=== PATIENT | female | born 1965 ===

== ENCOUNTER 2018-06-16 05:24 | Emergency (ER) | payer SELFPAY ==
[2018-06-16 05:24] VITALS: BMI 31.6
[2018-06-16 05:40] VITALS: TEMP 97.9
--- NOTE | 2018-06-16 05:57 | ED PDOC ---
Arrival/HPI - General Chief Complaint: ENT Problem Time Seen by Provider: 06/16/18 05:42 Historian: Patient - History of Present Illness Narrative History of Present Illness (Text): 06/16/18 05:54 52 year old female, with no significant past medical history, presents to the emergency department with right ear pain. Patient informs pain occurs when she eats. Patient informs pain is not localized to the ear, but travels to her whole right face. Patient informs she has pain in her jaw and teeth as well. Patient denies any fevers, chills, headache, dizziness, chest pain, shortness of breath, cough, abdominal pain, nausea, vomiting, diarrhea, back pain, neck pain, or any other complaint. Time/Duration: Prior to Arrival Symptom Onset: Gradual Symptom Course: Unchanged Quality: Aching Activities at Onset: Light Past Medical History - Provider Review Nursing Documentation Reviewed: Yes - Infectious Disease Hx of Infectious Diseases: None - Reproductive Currently : No - Cardiac Hx Cardiac Disorders: No - Pulmonary Hx Asthma: Yes - Neurological Hx Neurological Disorder: No - HEENT Hx HEENT Disorder: No - Renal Hx Renal Disorder: No - Endocrine/Metabolic Hx Endocrine Disorders: No - Hematological/Oncological Hx Blood Disorders: No - Integumentary Hx Dermatological Disorder: No - Musculoskeletal/Rheumatological Hx Musculoskeletal Disorders: No - Gastrointestinal Hx Gastrointestinal Disorders: No - Genitourinary/Gynecological Hx Genitourinary Disorders: No - Psychiatric Hx Psychophysiologic Disorder: No Hx Substance Use: No - Surgical History Other/Comment: breast reduction and tummy tuck - Anesthesia Hx Anesthesia: Yes Hx Anesthesia Reactions: Yes Hx Malignant Hyperthermia: No Family/Social History - Physician Review Nursing Documentation Reviewed: Yes Family/Social History: No Known Family HX Smoking Status: Never Smoked Hx Alcohol Use: No Hx Substance Use: No Allergies/Home Meds Allergies/Adverse Reactions: Allergies No Known Allergies Allergy (Verified 06/16/18 05:41) Review of Systems - Physician Review All systems were reviewed & negative as marked: Yes - Review of Systems Constitutional: absent: Fevers, Night Sweats ENT: TMJ Pain Respiratory: absent: SOB, Cough Cardiovascular: absent: Chest Pain Gastrointestinal: absent: Abdominal Pain, Diarrhea, Nausea, Vomiting Musculoskeletal: absent: Back Pain, Neck Pain Neurological: absent: Headache, Dizziness Physical Exam Vital Signs Reviewed: Yes Vital Signs Temp Pulse Resp BP Pulse Ox 06/16/18 05:37 97.9 F 78 16 124/86 98 Temperature: Afebrile Blood Pressure: Normal Pulse: Regular Respiratory Rate: Normal Appearance: Positive for: Well-Appearing, Non-Toxic, Comfortable Pain Distress: None Mental Status: Positive for: Alert and Oriented X 3 - Systems Exam Head: Present: Atraumatic, Normocephalic Pupils: Present: PERRL Extroacular Muscles: Present: EOMI Conjunctiva: Present: Normal Mouth: Present: Moist Mucous Membranes Neck: Present: Normal Range of Motion Respiratory/Chest: Present: Clear to Auscultation, Good Air Exchange. No: Respiratory Distress, Accessory Muscle Use Cardiovascular: Present: Regular Rate and Rhythm, Normal S1, S2. No: Murmurs Abdomen: No: Tenderness, Distention, Peritoneal Signs Back: Present: Normal Inspection Upper Extremity: Present: Normal Inspection. No: Cyanosis, Edema Lower Extremity: Present: Normal Inspection. No: Edema Neurological: Present: GCS=15, CN II-XII Intact, Speech Normal Skin: Present: Warm, Dry, Normal Color. No: Rashes Psychiatric: Present: Alert, Oriented x 3, Normal Insight, Normal Concentration Medical Decision Making ED Course and Treatment: 06/16/18 05:57 Impression: 52 year old female presents with right ear pain. Plan: -- CT Mastoids -- Reassess and disposition Prior Visits: Notes and results from previous visits were reviewed. endorsed to wing dillard ct results and dispo - Scribe Statement The provider has reviewed the documentation as recorded by the Katibmaddy Gomez Provider Scribe Attestation: All medical record entries made by the Scribmaddy were at my direction and personally dictated by me. I have reviewed the chart and agree that the record accurately reflects my personal performance of the history, physical exam, medical decision making, and the department course for this patient. I have also personally directed, reviewed, and agree with the discharge instructions and disposition. Disposition/Present on Arrival - Present on Arrival Any Indicators Present on Arrival: No History of DVT/PE: No History of Uncontrolled Diabetes: No Urinary Catheter: No History of Decub. Ulcer: No History Surgical Site Infection Following: None - Disposition Have Diagnosis and Disposition been Completed?: Yes Diagnosis: Acute otitis media Disposition: HOME/ ROUTINE Disposition Time: 07:00 Condition: STABLE Discharge Instructions (ExitCare): Ear Infections (Otitis Media) (DC) Print Language: ENGLISH Additional Instructions: All medical record entries made by the Scribe were at my direction and personally dictated by me. I have reviewed the chart and agree that the record accurately reflects my personal performance of the history, physical exam, medical decision making, and the department course for this patient. I have also personally directed, reviewed, and agree with the discharge instructions and disposition. Please follow up with your PCP in 3-5 days Take medication as prescribed. If possible, please follow up with ENT Prescriptions: Amoxicillin/Potassium Clav [Amox-Clav 875-125 mg Tablet] 1 each PO BID 10 Days #20 tablet Referrals: [facility] [place] [Outside] - Follow up with primary Tyler Murillo DO [Staff Provider] - Follow up with primary Lencho Richard MD [Staff Provider] - Follow up with primary Mary Grace Oviedo MD [Medical Doctor] - Follow up with primary Forms: [employer] (Hong Konger)
--- NOTE | 2018-06-16 07:07 | ED PDOC ---
Physical Exam Vital Signs Temp Pulse Resp BP Pulse Ox 06/16/18 05:37 97.9 F 78 16 124/86 98 Medical Decision Making ED Course and Treatment: 06/16/18 07:[address] Diaz with patient pending CT scan results 06/16/18 07:50 CT results show no evidence of mastoiditis. Findings communicated to patient who demonstrates understanding and will follow up with her PCP. Scripts provided as well as follow up with ENT and neurology. Opportunity for questions given and answered. She is stable for discharge. - RAD Interpretation Narrative RAD Interpretations (Text): 06/16/18 07:[address] reviewed by radiologist, shows: Impression: No CT evidence of mastoiditis. Radiology Orders: 06/16/18 05:54 MASTOIDS W/O CONTRAST [CT] Stat Travel Cota: Radiologist Disposition/Present on Arrival - Present on Arrival Any Indicators Present on Arrival: No History of DVT/PE: No History of Uncontrolled Diabetes: No Urinary Catheter: No History of Decub. Ulcer: No History Surgical Site Infection Following: None - Disposition Have Diagnosis and Disposition been Completed?: Yes Diagnosis: Acute otitis media Disposition: HOME/ ROUTINE Disposition Time: 07:28 Patient Plan: Discharge Patient Problems: Current Active Problems Problem Status Onset Acute otitis media Acute Condition: STABLE Discharge Instructions (ExitCare): Ear Infections (Otitis Media) (DC) Print Language: [place]ICAN CITIZEN Additional Instructions: All medical record entries made by the Scribe were at my direction and personally dictated by me. I have reviewed the chart and agree that the record accurately reflects my personal performance of the history, physical exam, medical decision making, and the department course for this patient. I have also personally directed, reviewed, and agree with the discharge instructions and disposition. Please follow up with your PCP in 3-5 days Take medication as prescribed. If possible, please follow up with ENT Prescriptions: Amoxicillin/Potassium Clav [Amox-Clav 875-125 mg Tablet] 1 each PO BID 10 Days #20 tablet Referrals: [facility] [place]] - Follow up with primary Tyler Murillo DO [Staff Provider] - Follow up with primary Mary Grace Oviedo MD [Medical Doctor] - Follow up with primary Lencho Richard MD [Staff Provider] - Follow up with primary Forms: [employer] (Sinhala)
[2018-06-16 07:18] VITALS: BP 112/64; PULSE 64; RESP 18; O2SAT 97
--- NOTE | 2018-06-16 07:54 | CT ---
Date of service: 06/16/2018 PROCEDURE: CT OF THE TEMPORAL BONES WITHOUT CONTRAST HISTORY: rt sided pain COMPARISON: None available. TECHNIQUE: High resolution axial images of the temporal bones were obtained. Coronal and sagittal reformats were generated. Radiation dose: Total exam DLP = 579.63 mGy-cm. This CT exam was performed using one or more of the following dose reduction techniques: Automated exposure control, adjustment of the mA and/or kV according to patient size, and/or use of iterative reconstruction technique. FINDINGS: RIGHT TEMPORAL BONE: RIGHT MIDDLE EAR: Normal aeration and development of the middle ear cavity is identified with the ossicular chain is intact. Oval and round window knee shows appear within normal limits. No destructive bony lesion appreciable. RIGHT INNER EAR: Cochlea: Normal. Semicircular canals: Normal. RIGHT MASTOID AIR CELLS: Normal. RIGHT INTERNAL AUDITORY CANAL: Normal. RIGHT EXTERNAL AUDITORY CANAL: Normal. Scutum is intact without erosive change. RIGHT VESTIBULAR AND COCHLEAR AQUEDUCT: Normal. OTHER FINDINGS: None. LEFT TEMPORAL BONE: LEFT MIDDLE EAR: Normal aeration and development of the middle ear cavity is identified with the ossicular chain is intact. Oval and round window knee shows appear within normal limits. No destructive bony lesion appreciable. LEFT INNER EAR: Cochlea: Normal. Semicircular canals: Normal. LEFT MASTOID AIR CELLS: Normal. LEFT INTERNAL AUDITORY CANAL: Normal. LEFT EXTERNAL AUDITORY CANAL: Normal. Scutum is intact without erosive change. LEFT VESTIBULAR AND COCHLEAR AQUEDUCTS: Normal. OTHER FINDINGS: None. IMPRESSION: Unremarkable non contrast enhanced CT of the temporal bones. Concordant preliminary report from [place], 06/16/2018 7:23 a.m..
== END 2018-06-16 07:55 | disposition home or self-care (01) ==
LOC: ED 05:24
DX: H66.91 Otitis media, unspecified, right ear (principal)